=== PATIENT | female | born 1940 | race Caucasian/White ===

== ENCOUNTER 2017-12-28 18:51 | Inpatient (IN) ==
[2017-12-28] MEDS ORDERED: ONDANSETRON 4 MG/2 ML VIAL IV STA (19:28)
[2017-12-28] MEDS ORDERED: FUROSEMIDE 40 MG/4 ML VIAL IV STA (19:28)
[2017-12-28] MEDS ORDERED: ALBUTEROL/IPRATROPIUM 3 ML NEB RESP TX STA (19:28)
[2017-12-28 19:42] LABS: Basophils # 0.1 10*3/uL (0.0-0.2); Basophils % 1.1 % (0.0-0.8); Eosinophils # 0.4 10*3/uL (0.0-0.87); Eosinophils % 4.8 % (0.00-10.9); Hematocrit 41.6 VOL% (35.7-47.0); Hemoglobin 13.8 GM/DL (12.0-16.0); Immature Granulocytes % 0.2 %; Immature Granulocytes Absolute 0.02 #; Lymphocytes # 3.9 10*3/uL (1.4-4.0); Lymphocytes % 44.9 % (21.3-54.2); Mean Corpuscular HGB Conc 33.2 GM/DL (32-36); Mean Corpuscular Hemoglobin 33 PG (27-34); Mean Corpuscular Volume 100.2 FL (87-102); Mean Platelet Volume 10.4 FL (9.6-12.0); Monocytes % 10.9 % (1.7-12.7); Neutrophils # 3.3 10*3/uL (1.4-7.4); Neutrophils % 38.1 % (38.7-73.9); Platelet Count 223 T/CUMM (130-400); Red Blood Count 4.15 MC/CUMM (3.8-5.5); Red Cell Distribution Width 11.9 % (9.3-17.3); White Blood Count 8.8 T/CUMM (4-12)
[2017-12-28 19:49] LABS: Apearance,Urine Slightly Hazy (Clear); Bilirubin,Urine Negative (Negative); Blood, Urine Negative (Negative); Glucose,Urine (UA) Negative (Negative); Ketones,Urine Negative (Negative); Mucus,Urine Occasional /LPF (Occasional); Nitrite,Urine Negative (Negative); Protein,Urine Negative; Squamous Epithelial Cell,Urine Occasional /HPF (0-10); Urine Color Yellow (Yellow); Urine Specific Gravity 1.005 (1.001-1.035); Urine Urobilinogen < 2.0 EU/DL (0.2-1.0); WBC,Urine <1 /HPF (0-6)
[2017-12-28 19:56] LABS: PT Patient Result 10.3 SECS; Partial Thromboplastin Time 25.2 SECS (0-40)
[2017-12-28 20:08] LABS: Albumin 3.6 G/DL (3.4-5.0); Bilirubin,Total 0.4 MG/DL (0.2-1.0); Calcium 9.1 MG/DL (8.5-10.1); Osmolality,Calculated 278.8 MOS/KG (273-304); Potassium 5.8 MMOL/L (3.5-5.1); Total Protein 7.7 G/DL (6.4-8.3)
[2017-12-28 20:09] LABS: Troponin I < 0.015 NG/ML (0.00-0.045)
[2017-12-28 20:24] LABS: Eosinophils 1 % (0-10); Lymphocytes 38 % (20-55); Segmented Neutrophils 40 % (50-85); Total Cells Counted 100
[2017-12-28 20:26] LABS: Reactive Lymphocytes Few
[2017-12-28 20:27] LABS: Platelet Estimate Adequate
[2017-12-29 01:14] LABS: Calcium 9.8 MG/DL (8.5-10.1); Osmolality,Calculated 278.8 MOS/KG (273-304); Potassium 4.7 MMOL/L (3.5-5.1)
[2017-12-29] MEDS ORDERED: MAGNESIUM SULF RIDER 4 GM in PREMIX 1 EACH IV PRN (01:22)
[2017-12-29] MEDS ORDERED: ONDANSETRON 4 MG/2 ML VIAL IV PRN (01:22)
[2017-12-29] MEDS ORDERED: MAGNESIUM SULF RIDER 2 GM in PREMIX 1 EACH IV PRN (01:22)
[2017-12-29] MEDS: APIXABAN 2.5 MG TABLET PO SCH ×3 (02:01→21:19)
[2017-12-29] MEDS: ACETAMINOPHEN 325 MG TABLET PO PRN ×2 (04:25→16:54)
[2017-12-29 05:24] LABS: Basophils # 0.1 10*3/uL (0.0-0.2); Basophils % 0.5 % (0.0-0.8); Eosinophils # 0.4 10*3/uL (0.0-0.87); Eosinophils % 3.7 % (0.00-10.9); Hemoglobin 12.8 GM/DL (12.0-16.0); Immature Granulocytes % 0.3 %; Immature Granulocytes Absolute 0.03 #; Lymphocytes # 3.7 10*3/uL (1.4-4.0); Lymphocytes % 33.6 % (21.3-54.2); Mean Corpuscular HGB Conc 33.7 GM/DL (32-36); Mean Corpuscular Hemoglobin 34 PG (27-34); Mean Corpuscular Volume 99.5 FL (87-102); Mean Platelet Volume 10.5 FL (9.6-12.0); Monocytes # 1.4 10*3/uL (0.11-0.8); Monocytes % 12.3 % (1.7-12.7); Neutrophils # 5.5 10*3/uL (1.4-7.4); Neutrophils % 49.6 % (38.7-73.9); Platelet Count 238 T/CUMM (130-400); Red Blood Count 3.82 MC/CUMM (3.8-5.5); Red Cell Distribution Width 11.9 % (9.3-17.3)
[2017-12-29 05:40] LABS: Calcium 9.5 MG/DL (8.5-10.1); Osmolality,Calculated 276.1 MOS/KG (273-304); Risk Ratio 5.18; VLDL CHOLESTEROL 28.4 MG/DL
[2017-12-29] MEDS: hydrALAZINE 25 MG TABLET PO SCH ×4 (05:56→21:19)
[2017-12-29] MEDS: FUROSEMIDE 40 MG/4 ML VIAL IV SCH ×2 (08:32→16:42)
[2017-12-29] MEDS: SOTALOL 80 MG TABLET PO SCH ×2 (08:57→21:19)
[2017-12-29] MEDS: cloNIDine 0.1 MG TABLET PO SCH ×2 (08:57→21:19)
[2017-12-29] MEDS: LOSARTAN 25 MG TABLET PO SCH (08:57)
[2017-12-30] MEDS: hydrALAZINE 25 MG TABLET PO SCH ×3 (05:31→21:30)
[2017-12-30] MEDS: FUROSEMIDE 40 MG/4 ML VIAL IV SCH (08:35)
[2017-12-30] MEDS: APIXABAN 2.5 MG TABLET PO SCH ×2 (08:45→21:12)
[2017-12-30] MEDS: cloNIDine 0.1 MG TABLET PO SCH (08:45)
[2017-12-30] MEDS: LOSARTAN 25 MG TABLET PO SCH (08:46)
[2017-12-30] MEDS: SOTALOL 80 MG TABLET PO SCH ×2 (08:46→21:24)
[2017-12-30] MEDS: DOCUSATE SODIUM 100 MG CAPSULE PO SCH ×2 (16:02→21:12)
[2017-12-31 05:10] LABS: Calcium 8.4 MG/DL (8.5-10.1); Osmolality,Calculated 270.9 MOS/KG (273-304); Potassium 4.5 MMOL/L (3.5-5.1)
[2017-12-31] MEDS: hydrALAZINE 25 MG TABLET PO SCH ×3 (05:45→22:39)
[2017-12-31] MEDS: SOTALOL 80 MG TABLET PO SCH ×2 (09:58→22:40)
[2017-12-31] MEDS: DOCUSATE SODIUM 100 MG CAPSULE PO SCH ×2 (09:59→22:38)
[2017-12-31] MEDS: APIXABAN 2.5 MG TABLET PO SCH ×2 (09:59→22:39)
[2017-12-31] MEDS: LOSARTAN 25 MG TABLET PO SCH (10:00)
[2017-12-31] MEDS: ACETAMINOPHEN 325 MG TABLET PO PRN ×2 (10:57→16:50)
[2017-12-31] MEDS ORDERED: MAGNESIUM HYDROXIDE SUSP 30 ML UDCUP PO PRN (13:33)
[2017-12-31] MEDS: MAGNESIUM HYDROXIDE SUSP 30 ML UDCUP PO SCH (14:50)
[2017-12-31] MEDS: FLUTICASONE 50 MCG NASAL SPRAY 16 GM BOTTLE BOTH NARES SCH ×2 (16:49→22:46)
[2017-12-31] MEDS: CETIRIZINE 10 MG TABLET PO SCH (16:50)
[2017-12-31] MEDS ORDERED: ATORVASTATIN 40 MG TABLET PO SCH (21:00)
[2018-01-01] MEDS: ACETAMINOPHEN 325 MG TABLET PO PRN (04:28)
[2018-01-01 05:28] LABS: Calcium 8.7 MG/DL (8.5-10.1); Osmolality,Calculated 279.8 MOS/KG (273-304); Potassium 4.5 MMOL/L (3.5-5.1)
[2018-01-01] MEDS: hydrALAZINE 25 MG TABLET PO SCH (05:48)
[2018-01-01] MEDS: APIXABAN 2.5 MG TABLET PO SCH (09:58)
[2018-01-01] MEDS: LOSARTAN 25 MG TABLET PO SCH (09:58)
[2018-01-01] MEDS: MAGNESIUM HYDROXIDE SUSP 30 ML UDCUP PO SCH (09:59)
[2018-01-01] MEDS: DOCUSATE SODIUM 100 MG CAPSULE PO SCH (09:59)
[2018-01-01] MEDS: CETIRIZINE 10 MG TABLET PO SCH (09:59)
[2018-01-01] MEDS: SOTALOL 80 MG TABLET PO SCH (10:15)
[2018-01-01] MEDS: FLUTICASONE 50 MCG NASAL SPRAY 16 GM BOTTLE BOTH NARES SCH (10:15)
[2018-01-01 16:33] VITALS: BP 136/63
== END 2018-01-01 18:15 | disposition home health service (06) | DRG 291 ==
LOC: N.ED 18:51 → N.EDINP 23:42 → SUATTDRO 23:42 → N.TELES 12-29 00:44
PROVIDERS: ADMIT Emergency Medicine; ATTEND Hospitalist

== ENCOUNTER 2018-09-04 21:25 | Observation (INO) ==
[2018-09-04] MEDS ORDERED: MORPHINE 4 MG/1 ML VIAL IV STA (21:46)
[2018-09-04] MEDS ORDERED: ONDANSETRON 4 MG/2 ML VIAL IV STA (21:46)
[2018-09-04] MEDS ORDERED: ASPIRIN 325 MG TABLET PO STA (21:46)
[2018-09-04] MEDS ORDERED: ALUM/MAG/SIMETH/LIDO VISC 1:1 30 ML BOTTLE PO STA (21:46)
[2018-09-04] MEDS ORDERED: NITROGLYCERIN 2% OINT 1 INCH/GM PACK TOP STA (21:46)
[2018-09-04 22:24] LABS: Basophils # 0.1 10*3/uL (0.0-0.2); Basophils % 0.7 % (0.0-0.8); Eosinophils # 0.6 10*3/uL (0.0-0.87); Hematocrit 40.4 VOL% (35.7-47.0); Hemoglobin 13.4 GM/DL (12.0-16.0); Immature Granulocytes % 0.4 %; Immature Granulocytes Absolute 0.04 #; Lymphocytes # 4.6 10*3/uL (1.4-4.0); Lymphocytes % 41.9 % (21.3-54.2); Mean Corpuscular HGB Conc 33.2 GM/DL (32-36); Mean Platelet Volume 9.7 FL (9.6-12.0); Monocytes % 12.1 % (1.7-12.7); Neutrophils % 39.9 % (38.7-73.9); Platelet Count 218 T/CUMM (130-400); Red Blood Count 4.04 MC/CUMM (3.8-5.5); Red Cell Distribution Width 11.8 % (9.3-17.3)
[2018-09-04 22:32] LABS: PT Patient Result 10.5 SECS
[2018-09-04 22:45] LABS: Albumin 3.4 G/DL (3.4-5.0); Bilirubin,Total 0.4 MG/DL (0.2-1.0); Calcium 8.8 MG/DL (8.5-10.1); Osmolality,Calculated 276.7 MOS/KG (273-304); Total Protein 7.5 G/DL (6.4-8.3)
[2018-09-04 23:26] LABS: Apearance,Urine Slightly Hazy (Clear); Bacteria,Urine Occasional /HPF (Few); Bilirubin,Urine Negative (Negative); Blood, Urine Moderate mg/dL (Negative); Glucose,Urine (UA) Negative (Negative); Ketones,Urine Negative (Negative); Mucus,Urine Occasional /LPF (Occasional); Nitrite,Urine Negative (Negative); Protein,Urine Negative; RBC,Urine 57 /HPF (0-4); Squamous Epithelial Cell,Urine Occasional /HPF (0-10); Urine Color Yellow (Yellow); Urine Specific Gravity 1.017 (1.001-1.035); Urine Urobilinogen < 2.0 EU/DL (0.2-1.0); WBC,Urine 32 /HPF (0-6)
[2018-09-04] MEDS ORDERED: ONDANSETRON 4 MG/2 ML VIAL IV PRN (23:45)
[2018-09-04] MEDS ORDERED: MORPHINE 4 MG/1 ML VIAL IV PRN (23:45)
[2018-09-04] MEDS ORDERED: ENOXAPARIN 40 MG/0.4 ML SYRINGE SUBCUT SCH (23:45)
[2018-09-05 03:00] LABS: Risk Ratio 2.76; VLDL CHOLESTEROL 18.4 MG/DL
[2018-09-05] MEDS: NITROGLYCERIN 2% OINT 1 INCH/GM PACK TOP SCH ×2 (07:02→12:44)
[2018-09-05] MEDS ORDERED: ACETAMINOPHEN 325 MG TABLET PO PRN (07:54)
[2018-09-05] MEDS ORDERED: SOTALOL 80 MG TABLET PO SCH (09:00)
[2018-09-05] MEDS ORDERED: LOSARTAN 25 MG TABLET PO SCH (09:00)
[2018-09-05] MEDS ORDERED: CETIRIZINE 10 MG TABLET PO SCH (09:00)
[2018-09-05] MEDS ORDERED: APIXABAN 2.5 MG TABLET PO SCH (09:00)
[2018-09-05] MEDS ORDERED: FOSFOMYCIN 3 GM PACK PO ONE (11:00)
[2018-09-05] MEDS ORDERED: REGADENOSON 0.4 MG/5 ML SYRINGE IV ONE (12:01)
[2018-09-05 12:47] VITALS: BP 157/68
[2018-09-05] MEDS ORDERED: ATORVASTATIN 40 MG TABLET PO SCH (21:00)
== END 2018-09-05 15:00 | disposition home or self-care (01) ==
LOC: N.ED 21:25 → N.EDINP 21:25 → N.TELES 09-05 00:08
PROVIDERS: ADMIT Hospitalist; ATTEND Hospitalist